=== PATIENT | male | born 1965 | race African-American/Black ===

== ENCOUNTER 2019-11-10 16:05 | Observation (INO) ==
[2019-11-10] MEDS ORDERED: MORPHINE 4 MG/1 ML VIAL IV STA (16:42)
[2019-11-10] MEDS ORDERED: ASPIRIN 325 MG TABLET PO STA (16:42)
[2019-11-10] MEDS ORDERED: ONDANSETRON 4 MG/2 ML VIAL IV STA (16:42)
[2019-11-10] MEDS ORDERED: NITROGLYCERIN 2% OINT 1 INCH/GM PACK TOP STA (16:42)
[2019-11-10] MEDS ORDERED: ALUM/MAG/SIMETH/LIDO VISC 1:1 30 ML BOTTLE PO STA (16:42)
[2019-11-10] MEDS ORDERED: SODIUM CHLORIDE 0.9% 1,000 ML IV STA (17:10)
[2019-11-10 17:19] LABS: Basophils % 0.8 % (0.0-0.8); Eosinophils # 0.4 10*3/uL (0.0-0.87); Eosinophils % 8.2 % (0.00-10.9); Hematocrit 40.1 VOL% (42.0-52.0); Immature Granulocytes % 0.4 %; Immature Granulocytes Absolute 0.02 #; Lymphocytes # 1.6 10*3/uL (1.4-4.0); Lymphocytes % 33.8 % (21.2-54.2); Mean Corpuscular HGB Conc 32.4 GM/DL (32-36); Mean Corpuscular Volume 79.6 FL (87-102); Mean Platelet Volume 9.8 FL (9.6-12.0); Monocytes % 9.5 % (1.7-12.7); Neutrophils % 47.3 % (38.7-73.9); Platelet Count 336 T/CUMM (130-400); Red Blood Count 5.04 MC/CUMM (3.8-5.5); Red Cell Distribution Width 15.6 % (9.3-17.3); White Blood Count 4.9 T/CUMM (4-12)
[2019-11-10 17:35] LABS: PT Patient Result 10.5 SECS (9.6-12.2)
[2019-11-10 17:44] LABS: Albumin 4.2 G/DL (3.4-5.0); Bilirubin,Total 0.6 MG/DL (0.2-1.0); Calcium 9.1 MG/DL (8.5-10.1); Osmolality,Calculated 266.5 MOS/KG (273-304); Total Protein 7.6 G/DL (6.4-8.3)
[2019-11-10] MEDS ORDERED: GLUCAGON 1 MG VIAL IM PRN (18:08)
[2019-11-10] MEDS ORDERED: DEXTROSE 10% 250 ML BAG IV PRN (18:08)
[2019-11-10] MEDS ORDERED: ONDANSETRON 4 MG/2 ML VIAL IV PRN (18:37)
[2019-11-10] MEDS ORDERED: ACETAMINOPHEN 325 MG TABLET PO PRN (18:37)
[2019-11-10] MEDS ORDERED: NORTRIPTYLINE PO SCH (21:00)
[2019-11-10] MEDS: TICAGRELOR 90 MG TABLET PO SCH (21:07)
[2019-11-10] MEDS: SODIUM CHLORIDE 0.9% 1,000 ML IV SCH (21:07)
[2019-11-10 22:46] LABS: Apearance,Urine CLEAR (Clear); Bilirubin,Urine Negative (Negative); Blood, Urine Negative (Negative); Glucose,Urine (UA) Negative (Negative); Hyaline Casts,Urine 13 /LPF (0-3); Ketones,Urine Negative (Negative); Mucus,Urine Occasional /LPF (Occasional); Nitrite,Urine Negative (Negative); Protein,Urine Negative; RBC,Urine 1 /HPF (0-4); Urine Color Yellow (Yellow); Urine Specific Gravity 1.011 (1.001-1.035); Urine Urobilinogen < 2.0 EU/DL (0.2-1.0); WBC,Urine 1 /HPF (0-6)
[2019-11-10 23:08] LABS: Barbiturates Screen,Urine Negative (Negative); Benzodiazepines Screen,Urine Negative (Negative); Cannabinoid Screen,Urine Negative (Negative); Opiate Screen,Urine Negative (Negative); Phencyclidine Screen,Urine Negative (Negative)
[2019-11-11 00:16] LABS: Troponin I 0.339 NG/ML (0.00-0.045)
[2019-11-11 05:39] LABS: Risk Ratio 2.7; Thyroid Stimulating Hormone 0.64 uIU/ml (0.358-3.74); VLDL CHOLESTEROL 16.4 MG/DL
[2019-11-11] MEDS: TICAGRELOR 90 MG TABLET PO SCH (08:56)
[2019-11-11] MEDS: SODIUM CHLORIDE 0.9% 1,000 ML IV SCH (08:57)
[2019-11-11] MEDS ORDERED: PANTOPRAZOLE 40 MG TABLET PO SCH (09:00)
[2019-11-11] MEDS ORDERED: ATORVASTATIN 80 MG TABLET PO SCH (09:00)
[2019-11-11] MEDS ORDERED: METOPROLOL SUCCINATE XL 50 MG TABLET PO SCH (09:00)
[2019-11-11] MEDS ORDERED: ASPIRIN CHEW 81 MG TABLET PO SCH (09:00)
[2019-11-11] MEDS ORDERED: CHLORTHALIDONE 25 MG TABLET PO SCH (09:00)
[2019-11-11] MEDS ORDERED: lisinopriL 10 MG TABLET PO SCH (09:00)
[2019-11-11 16:19] VITALS: BP 107/69
== END 2019-11-11 17:10 | disposition home or self-care (01) ==
LOC: N.TELES 16:05 → N.ED 16:05 → N.TELES 19:35
PROVIDERS: ADMIT Internal Medicine; ATTEND Internal Medicine

== ENCOUNTER 2019-11-27 10:38 | Observation (INO) ==
[2019-11-27 11:12] LABS: Basophils # 0.1 10*3/uL (0.0-0.2); Basophils % 1.1 % (0.0-0.8); Eosinophils # 0.5 10*3/uL (0.0-0.87); Eosinophils % 9.7 % (0.00-10.9); Hematocrit 40.9 VOL% (42.0-52.0); Hemoglobin 12.8 GM/DL (14.0-18.0); Immature Granulocytes % 0.4 %; Immature Granulocytes Absolute 0.02 #; Lymphocytes # 1.5 10*3/uL (1.4-4.0); Lymphocytes % 32.6 % (21.2-54.2); Mean Corpuscular HGB Conc 31.3 GM/DL (32-36); Mean Corpuscular Volume 81.6 FL (87-102); Mean Platelet Volume 9.5 FL (9.6-12.0); Neutrophils % 45.2 % (38.7-73.9); Platelet Count 353 T/CUMM (130-400); Red Blood Count 5.01 MC/CUMM (3.8-5.5); Red Cell Distribution Width 16.1 % (9.3-17.3); White Blood Count 4.7 T/CUMM (4-12)
[2019-11-27 11:39] LABS: Albumin 4.1 G/DL (3.4-5.0); Bilirubin,Total 0.5 MG/DL (0.2-1.0); Calcium 9.6 MG/DL (8.5-10.1); Total Protein 7.8 G/DL (6.4-8.3)
[2019-11-27 11:46] LABS: INR 0.9; PT Patient Result 10.3 SECS (9.6-12.2); Partial Thromboplastin Time 25.2 SECS (20.8-36.0)
[2019-11-27] MEDS ORDERED: ACETAMINOPHEN 325 MG TABLET PO PRN (12:37)
[2019-11-27] MEDS ORDERED: ONDANSETRON 4 MG/2 ML VIAL IV PRN (12:37)
[2019-11-27] MEDS ORDERED: hydrALAZINE 20 MG/1 ML VIAL IV PRN (12:37)
[2019-11-27] MEDS ORDERED: MORPHINE 4 MG/1 ML VIAL IV PRN (12:37)
[2019-11-27] MEDS ORDERED: SODIUM CHLORIDE 0.9% 1,000 ML IV SCH (13:00)
[2019-11-27 13:05] LABS: % Iron Saturation 17.9 % (18-50)
[2019-11-27 13:26] LABS: Vitamin B12 455 PG/ML (211-911)
[2019-11-27] MEDS ORDERED: MAGNESIUM SULF RIDER 4 GM in PREMIX 1 EACH IV PRN (14:43)
[2019-11-27] MEDS ORDERED: MAGNESIUM SULF RIDER 2 GM in PREMIX 1 EACH IV PRN (14:43)
[2019-11-27 15:09] LABS: Basophils % 0.6 % (0.0-0.8); Eosinophils # 0.2 10*3/uL (0.0-0.87); Eosinophils % 4.1 % (0.00-10.9); Hematocrit 40.8 VOL% (42.0-52.0); Hemoglobin 12.6 GM/DL (14.0-18.0); Immature Granulocytes % 0.4 %; Immature Granulocytes Absolute 0.02 #; Lymphocytes % 19.6 % (21.2-54.2); Mean Corpuscular HGB Conc 30.9 GM/DL (32-36); Mean Corpuscular Volume 82.9 FL (87-102); Mean Platelet Volume 9.7 FL (9.6-12.0); Monocytes % 7.3 % (1.7-12.7); Platelet Count 340 T/CUMM (130-400); Red Blood Count 4.92 MC/CUMM (3.8-5.5); Red Cell Distribution Width 16.5 % (9.3-17.3); White Blood Count 5.1 T/CUMM (4-12)
[2019-11-27] MEDS ORDERED: NITROGLYCERIN SL 0.4 MG TABLET SL PRN (15:15)
[2019-11-27 16:00] LABS: Sedimentation Rate-Westergren 19 MM/HR (0-20)
[2019-11-27] MEDS: TICAGRELOR 90 MG TABLET PO SCH (21:00)
[2019-11-27] MEDS ORDERED: ENOXAPARIN 40 MG/0.4 ML SYRINGE SUBCUT SCH (21:00)
[2019-11-27] MEDS ORDERED: NORTRIPTYLINE 25 MG CAPSULE PO SCH (21:00)
[2019-11-27 23:36] LABS: Apearance,Urine CLEAR (Clear); Bilirubin,Urine Negative (Negative); Blood, Urine Negative (Negative); Glucose,Urine (UA) Negative (Negative); Ketones,Urine Negative (Negative); Mucus,Urine Few /LPF (Occasional); Nitrite,Urine Negative (Negative); Protein,Urine Negative; Squamous Epithelial Cell,Urine Occasional /HPF (0-10); Urine Color Yellow (Yellow); Urine Specific Gravity 1.016 (1.001-1.035); Urine Urobilinogen < 2.0 EU/DL (0.2-1.0); WBC,Urine <1 /HPF (0-6)
[2019-11-28 06:09] LABS: Basophils % 0.7 % (0.0-0.8); Eosinophils # 0.4 10*3/uL (0.0-0.87); Eosinophils % 7.2 % (0.00-10.9); Hematocrit 38.4 VOL% (42.0-52.0); Hemoglobin 12.3 GM/DL (14.0-18.0); Immature Granulocytes % 0.4 %; Immature Granulocytes Absolute 0.02 #; Lymphocytes # 2.2 10*3/uL (1.4-4.0); Lymphocytes % 38.6 % (21.2-54.2); Mean Corpuscular Volume 80.5 FL (87-102); Mean Platelet Volume 11.1 FL (9.6-12.0); Monocytes % 8.5 % (1.7-12.7); Neutrophils % 44.6 % (38.7-73.9); Platelet Count 363 T/CUMM (130-400); Red Blood Count 4.77 MC/CUMM (3.8-5.5); Red Cell Distribution Width 17.3 % (9.3-17.3); White Blood Count 5.7 T/CUMM (4-12)
[2019-11-28 06:14] LABS: Acanthocytes Few; Hypochromasia 1+; Microcytosis 1+; Ovalocytes Slight; Target Cells Slight
[2019-11-28 06:15] LABS: Platelet Estimate Normal
[2019-11-28 07:35] LABS: Calcium 9.3 MG/DL (8.5-10.1)
[2019-11-28 07:51] VITALS: BP 118/85
[2019-11-28] MEDS ORDERED: CHLORTHALIDONE 25 MG TABLET PO SCH (09:00)
[2019-11-28] MEDS ORDERED: METOPROLOL SUCCINATE XL 50 MG TABLET PO SCH (09:00)
[2019-11-28] MEDS ORDERED: ASPIRIN CHEW 81 MG TABLET PO SCH (09:00)
[2019-11-28] MEDS ORDERED: PANTOPRAZOLE 40 MG TABLET PO SCH (09:00)
[2019-11-28 09:20] LABS: Hemoglobin A1 (Alkaline) 97.6 % (96.5-98.5); Hemoglobin A2 (Alkaline) 2.4 % (1.5-3.5)
[2019-11-28] MEDS: TICAGRELOR 90 MG TABLET PO SCH (10:08)
[2019-11-29] MEDS ORDERED: lisinopriL 10 MG TABLET PO SCH (09:00)
[2019-11-29] MEDS ORDERED: ATORVASTATIN 80 MG TABLET PO SCH (09:00)
== END 2019-11-28 11:53 | disposition home or self-care (01) ==
LOC: N.ED 10:38 → N.EDINP 10:38 → N.2E 14:26
PROVIDERS: ADMIT Internal Medicine; ATTEND Internal Medicine

== ENCOUNTER 2020-02-11 11:01 | Observation (INO) ==
[2020-02-11 11:56] LABS: Basophils % 0.7 % (0.0-0.8); Eosinophils # 0.2 10*3/uL (0.0-0.87); Eosinophils % 5.5 % (0.00-10.9); Immature Granulocytes % 0.2 %; Immature Granulocytes Absolute 0.01 #; Lymphocytes % 24.8 % (21.2-54.2); Mean Corpuscular HGB Conc 31.6 GM/DL (32-36); Mean Corpuscular Volume 83.5 FL (87-102); Mean Platelet Volume 10.1 FL (9.6-12.0); Monocytes % 10.2 % (1.7-12.7); Neutrophils % 58.6 % (38.7-73.9); Platelet Count 315 T/CUMM (130-400); Red Blood Count 4.55 MC/CUMM (3.8-5.5); Red Cell Distribution Width 15.9 % (9.3-17.3)
[2020-02-11 12:11] LABS: INR 1.1; PT Patient Result 11.4 SECS (9.8-11.9); Partial Thromboplastin Time 28.6 SECS (23.9-33.8)
[2020-02-11 12:28] LABS: Alanine Aminotransferase 20 U/L (16-61); Albumin 3.8 G/DL (3.4-5.0); Alkaline Phosphatase 70 U/L (45-117); Aspartate Amino Transferase 13 U/L (0-37); Blood Urea Nitrogen 14 MG/DL (7-18); Calcium 9.2 MG/DL (8.5-10.1); Estimated Glom Filtration Rate 73 ML/MIN; Glucose 109 MG/DL (74-106); Total Protein 7.4 G/DL (6.4-8.3)
[2020-02-11 12:32] LABS: Troponin I 0.048 NG/ML (0.00-0.045)
[2020-02-11] MEDS ORDERED: BISACODYL 5 MG TABLET PO PRN (13:55)
[2020-02-11] MEDS ORDERED: DEXTROSE 50% 25 GM/50 ML VIAL IV PRN (13:55)
[2020-02-11] MEDS ORDERED: GLUCAGON 1 MG VIAL IM PRN (13:55)
[2020-02-11] MEDS ORDERED: ZALEPLON 5 MG CAPSULE PO PRN (13:55)
[2020-02-11] MEDS ORDERED: ONDANSETRON 4 MG/2 ML VIAL IV PRN (13:55)
[2020-02-11] MEDS ORDERED: hydrALAZINE 20 MG/1 ML VIAL ONE (14:00)
[2020-02-11] MEDS ORDERED: hydrALAZINE 20 MG/1 ML VIAL IV STA (14:05)
[2020-02-11] MEDS: ENOXAPARIN 40 MG/0.4 ML SYRINGE SUBCUT SCH (17:34)
[2020-02-11] MEDS: busPIRone 10 MG TABLET PO SCH ×2 (17:35→20:44)
[2020-02-11] MEDS ORDERED: lisinopriL 10 MG TABLET PO ONE (18:11)
[2020-02-11] MEDS ORDERED: hydrALAZINE 20 MG/1 ML VIAL IV PRN (18:11)
[2020-02-11] MEDS: TICAGRELOR 90 MG TABLET PO SCH (20:44)
[2020-02-12] MEDS: TICAGRELOR 90 MG TABLET PO SCH (08:42)
[2020-02-12] MEDS: busPIRone 10 MG TABLET PO SCH (08:51)
[2020-02-12] MEDS ORDERED: LOSARTAN 50 MG TABLET PO SCH (09:00)
[2020-02-12] MEDS ORDERED: lisinopriL 10 MG TABLET PO SCH (09:00)
[2020-02-12] MEDS ORDERED: METOPROLOL SUCCINATE XL 50 MG TABLET PO SCH (09:00)
[2020-02-12] MEDS ORDERED: ATORVASTATIN 80 MG TABLET PO SCH (09:00)
[2020-02-12] MEDS ORDERED: ASPIRIN CHEW 81 MG TABLET PO SCH (09:00)
[2020-02-12] MEDS ORDERED: ACETAMINOPHEN 325 MG TABLET PO SCH (10:02)
[2020-02-12] MEDS: GABAPENTIN 100 MG CAPSULE PO SCH ×2 (10:14→14:01)
[2020-02-12] MEDS ORDERED: PANTOPRAZOLE 40 MG TABLET PO SCH (10:30)
[2020-02-12] MEDS ORDERED: ISOSORBIDE MONONITRATE 30 MG TABLET PO SCH (13:40)
[2020-02-12] MEDS: ENOXAPARIN 40 MG/0.4 ML SYRINGE SUBCUT SCH (14:02)
[2020-02-12 16:15] VITALS: BP 110/79
== END 2020-02-12 16:34 | disposition home or self-care (01) ==
LOC: N.ED 11:01 → N.EDINP 11:01 → SUATTDRO 13:55 → N.TELEN 15:24
PROVIDERS: ADMIT Internal Medicine Cardiovascular Disease; ATTEND Internal Medicine